=== PATIENT | male | born 1980 | race Caucasian/White ===

== ENCOUNTER 2017-02-18 19:07 | Observation (INO) | payer SELFPAY ==
[~2017-02-18] VITALS: Ht 165.1 cm; Wt 58.0 kg
[2017-02-18] MEDS ORDERED: ATOM10CA PO (20:20)
[2017-02-19] MEDS ORDERED: LORazepam 1MG TABLET PO ONE (01:00)
[2017-02-19] MEDS ORDERED: LORazepam 1MG TABLET ONE (01:12)
[2017-02-19 01:35] LABS: DAU SCREEN DISCLAIMER
[2017-02-19 01:38] LABS: ASPARTATE AMINO TRANSFERASE 36 U/L (15-37); BLOOD UREA NITROGEN 19 mg/dL (7-18)
[2017-02-19 02:08] LABS: ACETAMINOPHEN < 2 mcg/mL (10-30)
[2017-02-19] MEDS ORDERED: ACETAMINOPHEN 325 MG TABLET PO PRN (04:30)
[2017-02-19] MEDS: ENOXAPARIN 40 MG/0.4 ML SQ SCH (04:30)
[2017-02-19 04:57] VITALS: BP 106/73
[2017-02-19 08:07] VITALS: BP 117/79
[2017-02-19] MEDS: ATOMOXETINE HCL 10 MG HOMEMEDPO SCH (09:00)
[2017-02-19] MEDS: LORazepam 1MG TABLET PO PRN (17:03)
[2017-02-19 20:55] VITALS: BP 117/63
[2017-02-20] MEDS: ENOXAPARIN 40 MG/0.4 ML SQ SCH (05:49)
[2017-02-20 07:43] VITALS: BP 118/77
[2017-02-20] MEDS: ATOMOXETINE HCL 10 MG HOMEMEDPO SCH (07:49)
[2017-02-20] MEDS: LORazepam 1MG TABLET PO PRN ×2 (07:58→16:24)
[2017-02-20] MEDS: NICOTINE GUM 4 MG BC PRN ×2 (14:14→16:28)
[2017-02-20] MEDS: CALCIUM CARBONATE 500 MG TAB.CHEW PO PRN ×2 (15:33→19:58)
[2017-02-20 19:21] VITALS: BP 134/93
[2017-02-21] MEDS: ENOXAPARIN 40 MG/0.4 ML SQ SCH (04:31)
[2017-02-21 08:16] VITALS: BP 110/73
[2017-02-21] MEDS: NICOTINE GUM 4 MG BC PRN ×2 (10:00→14:41)
[2017-02-21] MEDS: LORazepam 1MG TABLET PO PRN (10:05)
[2017-02-21] MEDS: CALCIUM CARBONATE 500 MG TAB.CHEW PO PRN ×2 (16:14→19:20)
[2017-02-21 19:40] VITALS: BP 140/99
== END 2017-02-21 23:29 ==
LOC: ED 02-19 04:00 → EDIP 02-19 04:45 → 3E 02-19 04:53
PROVIDERS: ADMIT Internal Medicine; ATTEND Internal Medicine
DX: F23 Brief psychotic disorder (principal); F41.9 Anxiety disorder, unspecified; F17.200 Nicotine dependence, unspecified, uncomplicated
CPT/HCPCS: 36415; 80053; 80307; 80329; 81003; 84443; 85025; 99285; G0378; G0480